=== PATIENT | female | born 1990 | race Caucasian/White ===

== ENCOUNTER 2023-12-05 16:18 | Inpatient (IN) ==
[2023-12-05] MEDS ORDERED: IOPAMIDOL 100 ML BOTTLE IV ONE (16:19)
[2023-12-05 17:14] LABS: Appearance,Urine Slightly Cloudy (Clear); Bilirubin,Urine Small mg/dL (Negative); Color,Urine Yellow; Culture Indicated,Urine No; Glucose,Urine (UA) Negative (Negative); Ketones,Urine Trace mg/dL (Negative); Leukocyte Esterase,Urine Negative /uL (Negative); Mucus,Urine Mod /hpf; Nitrate,Urine Negative (Negative); PH,Urine 6.5 (5.0-9.0); Protein,Urine Trace mg/dL (Negative); Specific Gravity,Urine 1.025 (1.000-1.035); Urine Blood Negative ery/mcL (Negative); Urine RBC 0 /hpf (0-3); Urine Squamous Epithelial Cell 7 /hpf (0-4); Urine WBC 2 /hpf (0-4)
[2023-12-05 17:51] LABS: ALT/SGPT 928 U/L (<40); AST/SGOT 307 U/L (<32); Albumin 4.1 gm/dL (3.2-5.2); Albumin/Globulin Ratio 2.3 (1.0-2.3); Alkaline Phosphatase 79 U/L (39-117); Bilirubin,Total 0.3 mg/dL (0.1-1.0); Blood Urea Nitrogen 18 mg/dL (6-20); Calcium 8.7 mg/dL (8.6-10.4); Carbon Dioxide 24 mmol/L (22-30); Chloride 106 mmol/L (96-108); Globulin 1.8 gm/dL (2.2-3.7); Glomerular Filtration Rate 127; Glucose 118 mg/dL (70-105); Sodium 140 mmol/L (133-145)
[2023-12-05 18:06] LABS: Basophils # (Auto) 0.03 K/mcL (0.00-0.30); Basophils % (Auto) 0.2 % (0.0-2.0); Eosinophils # (Auto) 0.01 K/mcL (0.00-0.70); Eosinophils % (Auto) 0.1 % (0.0-7.0); Hematocrit 35.6 % (34.1-44.9); Hemoglobin 11.6 g/dL (11.2-15.7); Lymphocytes # (Auto) 4.56 K/mcL (1.50-4.80); Lymphocytes % (Auto) 23.6 % (15.5-49.0); Mean Cell Volume 87.5 fL (80.0-100.0); Mean Corpuscular HGB Conc 32.6 g/dL (31.0-36.0); Mean Platelet Volume 11.5 fL (8.8-12.5); Monocytes # (Auto) 2.03 K/mcL (0.10-0.90); Monocytes % (Auto) 10.5 % (1.0-12.0); Platelet Count 253 K/mcL (140-440); RBC 4.07 M/mcL (3.59-5.38); WBC 19.3 K/mcL (4.5-11.0)
[2023-12-05] MEDS: morphine 4 MG/ML VIAL IV ONE (18:08)
[2023-12-05] MEDS: ONDANSETRON 4 MG/2 ML VIAL IV ONE (18:18)
[2023-12-05] MEDS: fentaNYL 100 MCG/2 ML VIAL IV ONE ×3 (18:20→20:43)
[2023-12-05] MEDS: HYDROmorphone 0.5 MG/0.5 ML SYRINGE IV ONE (19:06)
[2023-12-05] MEDS: PIPERACILLIN SODIUM/TAZOBACTAM 4.5 GM in DEXTROSE 5% IN WATER 50 ML IV ONE (19:40)
[2023-12-05] MEDS ORDERED: HYDROmorphone 0.5 MG/0.5 ML SYRINGE IV PRN (20:46)
[2023-12-05] MEDS: DEXTROSE 5%-LR 1,000 ML IV SCH (22:00)
[2023-12-05] MEDS: fentaNYL 100 MCG/2 ML VIAL IV PRN (22:10)
[2023-12-05] MEDS: fentaNYL 100 MCG/2 ML VIAL ONE (22:11)
[2023-12-05] MEDS: PIPERACILLIN SODIUM/TAZOBACTAM 3.375 GM in DEXTROSE 5% IN WATER 100 ML IV SCH (22:38)
[2023-12-06] MEDS: PIPERACILLIN SODIUM/TAZOBACTAM 3.375 GM in DEXTROSE 5% IN WATER 100 ML IV SCH (00:30)
[2023-12-06] MEDS: DEXTROSE 5%-NS 1,000 ML IV SCH (01:15)
[2023-12-06] MEDS: 0.9 % SODIUM CHLORIDE 1,000 ML IV SCH (01:19)
[2023-12-06 03:39] LABS: Basophils # (Auto) 0.03 K/mcL (0.00-0.30); Basophils % (Auto) 0.2 % (0.0-2.0); Eosinophils # (Auto) 0.06 K/mcL (0.00-0.70); Eosinophils % (Auto) 0.3 % (0.0-7.0); Hematocrit 34.3 % (34.1-44.9); Hemoglobin 11.5 g/dL (11.2-15.7); Lymphocytes # (Auto) 7.15 K/mcL (1.50-4.80); Lymphocytes % (Auto) 40.6 % (15.5-49.0); Mean Cell Volume 87.5 fL (80.0-100.0); Mean Corpuscular HGB Conc 33.5 g/dL (31.0-36.0); Mean Platelet Volume 11.1 fL (8.8-12.5); Monocytes # (Auto) 1.51 K/mcL (0.10-0.90); Monocytes % (Auto) 8.6 % (1.0-12.0); Neutrophils % (Auto) 48.7 % (38.0-78.0); Platelet Count 248 K/mcL (140-440); RBC 3.92 M/mcL (3.59-5.38); Red Cell Distribution Width 13.1 % (11.5-14.5); WBC 17.6 K/mcL (4.5-11.0)
[2023-12-06 06:43] LABS: Hematocrit 34.2 % (34.1-44.9); Hemoglobin 11.3 g/dL (11.2-15.7); Mean Cell Volume 89.3 fL (80.0-100.0); Mean Platelet Volume 11.4 fL (8.8-12.5); Platelet Count 230 K/mcL (140-440); RBC 3.83 M/mcL (3.59-5.38); Red Cell Distribution Width 12.9 % (11.5-14.5); WBC 16.4 K/mcL (4.5-11.0)
[2023-12-06 07:39] LABS: ALT/SGPT 751 U/L (<40); AST/SGOT 163 U/L (<32); Albumin 3.6 gm/dL (3.2-5.2); Albumin/Globulin Ratio 2.4 (1.0-2.3); Alkaline Phosphatase 63 U/L (39-117); Bilirubin,Total 0.5 mg/dL (0.1-1.0); Blood Urea Nitrogen 16 mg/dL (6-20); Calcium 8.1 mg/dL (8.6-10.4); Carbon Dioxide 26 mmol/L (22-30); Chloride 105 mmol/L (96-108); Globulin 1.5 gm/dL (2.2-3.7); Glomerular Filtration Rate 127; Glucose 116 mg/dL (70-105); Potassium 3.6 mmol/L (3.3-5.1); Sodium 138 mmol/L (133-145)
[2023-12-06] MEDS: ONDANSETRON 4 MG/2 ML VIAL IV PRN (10:10)
[2023-12-06] MEDS: ALPRAZolam 0.5 MG TABLET PO PRN (12:33)
[2023-12-07 06:52] LABS: Hematocrit 34.7 % (34.1-44.9); Hemoglobin 11.5 g/dL (11.2-15.7); Mean Cell Volume 89.4 fL (80.0-100.0); Mean Corpuscular HGB Conc 33.1 g/dL (31.0-36.0); Mean Platelet Volume 10.9 fL (8.8-12.5); Platelet Count 217 K/mcL (140-440); RBC 3.88 M/mcL (3.59-5.38); Red Cell Distribution Width 12.6 % (11.5-14.5); WBC 13.4 K/mcL (4.5-11.0)
[2023-12-07 06:53] LABS: ALT/SGPT 505 U/L (<40); AST/SGOT 66 U/L (<32); Albumin 3.4 gm/dL (3.2-5.2); Albumin/Globulin Ratio 2.3 (1.0-2.3); Alkaline Phosphatase 66 U/L (39-117); Bilirubin,Total 0.7 mg/dL (0.1-1.0); Blood Urea Nitrogen 7 mg/dL (6-20); Calcium 7.9 mg/dL (8.6-10.4); Carbon Dioxide 26 mmol/L (22-30); Chloride 106 mmol/L (96-108); Globulin 1.5 gm/dL (2.2-3.7); Glomerular Filtration Rate 137; Glucose 100 mg/dL (70-105); Potassium 3.6 mmol/L (3.3-5.1); Sodium 140 mmol/L (133-145)
[2023-12-08 05:47] LABS: Mean Cell Volume 87.6 fL (80.0-100.0); Mean Corpuscular HGB Conc 33.3 g/dL (31.0-36.0); Mean Platelet Volume 10.4 fL (8.8-12.5); Platelet Count 237 K/mcL (140-440); RBC 4.11 M/mcL (3.59-5.38); Red Cell Distribution Width 12.4 % (11.5-14.5); WBC 13.6 K/mcL (4.5-11.0)
[2023-12-08] MEDS: MIDAZOLAM 2 MG/2 ML VIAL IV ONE ×2 (11:00→11:25)
[2023-12-08] MEDS: fentaNYL 100 MCG/2 ML VIAL IV ONE ×2 (11:00→11:35)
[2023-12-08] MEDS: ACETAMINOPHEN 650 MG/65 ML BAG IV ONE (13:05)
[2023-12-08] MEDS: oxyCODONE IR 5 MG TABLET PO PRN (13:19)
[2023-12-08] MEDS: MIDAZOLAM 2 MG/2 ML VIAL ONE (13:28)
[2023-12-08] MEDS: ACETAMINOPHEN 650 MG/65 ML BAG IV PRN (20:57)
[2023-12-09 06:21] LABS: Hemoglobin 12.6 g/dL (11.2-15.7); Mean Cell Volume 88.8 fL (80.0-100.0); Mean Corpuscular HGB Conc 33.2 g/dL (31.0-36.0); Mean Platelet Volume 10.4 fL (8.8-12.5); Platelet Count 246 K/mcL (140-440); RBC 4.28 M/mcL (3.59-5.38); Red Cell Distribution Width 12.5 % (11.5-14.5); WBC 13.2 K/mcL (4.5-11.0)
[2023-12-09 06:47] LABS: ALT/SGPT 301 U/L (<40); AST/SGOT 25 U/L (<32); Albumin 3.7 gm/dL (3.2-5.2); Albumin/Globulin Ratio 1.6 (1.0-2.3); Alkaline Phosphatase 86 U/L (39-117); Bilirubin,Total 1.4 mg/dL (0.1-1.0); Blood Urea Nitrogen 5 mg/dL (6-20); Calcium 8.8 mg/dL (8.6-10.4); Carbon Dioxide 26 mmol/L (22-30); Chloride 102 mmol/L (96-108); Globulin 2.3 gm/dL (2.2-3.7); Glomerular Filtration Rate 120; Glucose 122 mg/dL (70-105); Potassium 4.4 mmol/L (3.3-5.1); Sodium 137 mmol/L (133-145)
[2023-12-09] MEDS: ALPRAZolam 0.5 MG TABLET PO ONE (11:50)
[2023-12-09] MEDS ORDERED: GADOBENATE DIMEGLUMINE 15 ML/VIAL IV ONE (13:04)
[2023-12-09] MEDS: DEXTROSE 5%-NS 1,000 ML IV SCH (16:08)
[2023-12-09] MEDS: KETOROLAC 15 MG/ML VIAL IV SCH (20:42)
[2023-12-09] MEDS ORDERED: KETOROLAC 15 MG/ML VIAL IV SCH (22:00)
[2023-12-10 06:00] LABS: Basophils # (Auto) 0.01 K/mcL (0.00-0.30); Basophils % (Auto) 0.1 % (0.0-2.0); Eosinophils # (Auto) 0.49 K/mcL (0.00-0.70); Eosinophils % (Auto) 4.8 % (0.0-7.0); Hematocrit 41.2 % (34.1-44.9); Hemoglobin 13.6 g/dL (11.2-15.7); Lymphocytes # (Auto) 3.11 K/mcL (1.50-4.80); Lymphocytes % (Auto) 30.6 % (15.5-49.0); Mean Cell Volume 90.5 fL (80.0-100.0); Mean Platelet Volume 10.1 fL (8.8-12.5); Monocytes # (Auto) 0.95 K/mcL (0.10-0.90); Monocytes % (Auto) 9.4 % (1.0-12.0); Neutrophils % (Auto) 53.3 % (38.0-78.0); Platelet Count 246 K/mcL (140-440); RBC 4.55 M/mcL (3.59-5.38); Red Cell Distribution Width 12.8 % (11.5-14.5); WBC 10.2 K/mcL (4.5-11.0)
[2023-12-10 06:35] LABS: ALT/SGPT 235 U/L (<40); AST/SGOT 28 U/L (<32); Albumin 3.9 gm/dL (3.2-5.2); Albumin/Globulin Ratio 1.4 (1.0-2.3); Alkaline Phosphatase 122 U/L (39-117); Blood Urea Nitrogen 4 mg/dL (6-20); Calcium 9.1 mg/dL (8.6-10.4); Carbon Dioxide 24 mmol/L (22-30); Chloride 104 mmol/L (96-108); Globulin 2.8 gm/dL (2.2-3.7); Glomerular Filtration Rate 120; Glucose 99 mg/dL (70-105); Potassium 4.3 mmol/L (3.3-5.1); Sodium 139 mmol/L (133-145)
[2023-12-11 06:11] LABS: Basophils # (Auto) 0.01 K/mcL (0.00-0.30); Basophils % (Auto) 0.1 % (0.0-2.0); Eosinophils # (Auto) 0.46 K/mcL (0.00-0.70); Eosinophils % (Auto) 5.9 % (0.0-7.0); Hematocrit 39.2 % (34.1-44.9); Hemoglobin 12.9 g/dL (11.2-15.7); Lymphocytes # (Auto) 2.57 K/mcL (1.50-4.80); Lymphocytes % (Auto) 33.1 % (15.5-49.0); Mean Cell Volume 90.1 fL (80.0-100.0); Mean Corpuscular HGB Conc 32.9 g/dL (31.0-36.0); Monocytes # (Auto) 0.86 K/mcL (0.10-0.90); Monocytes % (Auto) 11.1 % (1.0-12.0); Neutrophils % (Auto) 48.8 % (38.0-78.0); Platelet Count 219 K/mcL (140-440); RBC 4.35 M/mcL (3.59-5.38); Red Cell Distribution Width 12.8 % (11.5-14.5); WBC 7.8 K/mcL (4.5-11.0)
[2023-12-11 06:38] LABS: ALT/SGPT 166 U/L (<40); AST/SGOT 26 U/L (<32); Albumin 3.7 gm/dL (3.2-5.2); Albumin/Globulin Ratio 1.4 (1.0-2.3); Alkaline Phosphatase 122 U/L (39-117); Bilirubin,Total 0.5 mg/dL (0.1-1.0); Blood Urea Nitrogen 6 mg/dL (6-20); Calcium 8.9 mg/dL (8.6-10.4); Carbon Dioxide 21 mmol/L (22-30); Chloride 105 mmol/L (96-108); Globulin 2.6 gm/dL (2.2-3.7); Glomerular Filtration Rate 127; Glucose 120 mg/dL (70-105); Potassium 4.1 mmol/L (3.3-5.1); Sodium 137 mmol/L (133-145)
[2023-12-12] MEDS ORDERED: ALPRAZolam 0.5 MG TABLET PO PRN (08:40)
[2023-12-12] MEDS: ALPRAZolam 0.5 MG TABLET PO PRN (10:34)
[2023-12-12] MEDS: HEPARIN 5,000 UNIT/ML VIAL SQ SCH (10:34)
== END 2023-12-12 16:58 | disposition home or self-care (01) | DRG 445 ==
LOC: MEDSUR 16:18 → ED 16:18 → MEDSUR 21:20
PROVIDERS: ADMIT Surgery Surgical Critical Care; ATTEND Family Medicine Adult Medicine